=== PATIENT | female | born 1995 | race Two or more races ===

== ENCOUNTER → 2017-08-18 | Outpatient (CLI) | payer BC ==
[2017-08-18 12:28] LABS: Basophils # (auto) 0 uL; Basophils % (auto) 0.9 % (0.0-2.0); Eosinophils # (auto) 0.1 uL; Eosinophils % (auto) 2.7 % (0.0-7.0); Hematocrit 43.8 % (36.0-46.0); Hemoglobin 15.2 g/dL (12.2-16.2); Lymphocytes # (auto) 1.2 uL; Lymphocytes % (auto) 27.4 % (10.0-50.0); Mean Corpuscular Hgb Conc. 34.7 g/dL (32.0-36.0); Mean Corpuscular Volume 83.5 fL (80.0-100.0); Monocytes # (auto) 0.3 uL; Monocytes % (auto) 6.4 % (0.0-12.0); Neutrophils # (auto) 2.7 uL; Neutrophils % (auto) 62.6 % (37.0-80.0); Platelet Count (auto) 269 10^3/uL (140-450); Red Blood Cells 5.25 10^6/uL (4.0-5.20); Red Cell Distribution Width 12.8 % (11.8-14.3); White Blood Cell 4.4 10^3/uL (4.4-10.8)
[2017-08-18 12:53] LABS: Beta HCG, Quantitative < 1 mlU/mL (1-3); Thyroid Stimulating Hormone 1.27 uIU/mL (0.358-3.74)
[2017-08-18 13:18] LABS: Albumin 4.1 g/dL (3.4-5.0); BUN/Creatinine Ratio 17.1; Bilirubin, Total 0.7 mg/dL (0.2-1.0); Calcium 8.9 mg/dL (8.5-10.1); Potassium 3.9 mmol/L (3.5-5.1); Total Protein 7.8 g/dL (6.4-8.2)
[2017-08-19 03:11] LABS: RPR Non Reactive (Non Reactive)
== END | disposition home or self-care (01) ==
LOC: LAB 11:34
DX: Z00.01 Encounter for general adult medical examination with abnormal findings (principal); R79.89 Other specified abnormal findings of blood chemistry
CPT/HCPCS: 36415; 80053; 80061; 83036; 84443; 84702; 85025; 86592; 86703

== ENCOUNTER 2020-05-29 00:12 | Emergency (ER) | payer BC, OTHER ==
[~2020-05-29] VITALS: Ht 172.7 cm; Wt 104.3 kg
[2020-05-29 00:53] VITALS: BP 124/91
[2020-05-29] MEDS ORDERED: KETOROLAC TROMETH 60MG/2ML VIAL IM ONE (01:15)
== END 2020-05-29 02:36 | disposition home or self-care (01) ==
LOC: ER 00:14 → EEVIPCON 00:14 → ER 02:36
DX: S33.5XXA Sprain of ligaments of lumbar spine, initial encounter (principal); M62.838 Other muscle spasm; X50.0XXA Overexertion from strenuous movement or load, initial encounter; Y93.89 Activity, other specified; Y99.0 Civilian activity done for income or pay; Y92.69 Other specified industrial and construction area as the place of occurrence of the external cause
CPT/HCPCS: 72100; 81025; 96372; 99283; J1885

== ENCOUNTER 2023-11-17 00:32 | Observation (INO) | payer SELFPAY ==
[2023-11-17] MEDS ORDERED: PRENCAP87 OR (00:57)
== END 2023-11-17 02:23 | disposition home or self-care (01) ==
LOC: LDRP 00:32
PROVIDERS: ADMIT Obstetrics & Gynecology; ATTEND Obstetrics & Gynecology
DX: O99.891 Other specified diseases and conditions complicating pregnancy (principal); R00.0 Tachycardia, unspecified; Z3A.34 34 weeks gestation of pregnancy
CPT/HCPCS: 59025; 76818; 81002; 94760; G0378